=== PATIENT | female | born 1955 | race Caucasian/White ===

== ENCOUNTER 2020-05-05 15:49 | Outpatient (CLI) | payer BC, SELFPAY ==
--- NOTE | ~2020-05-05 | MM_ITS ---
EXAMINATION: MM screening miguel ángel BI w mary HISTORY: Screening mammogram TECHNIQUE: Craniocaudal and mediolateral oblique 3-D tomosynthesis images were obtained and synthetic 2-D images were generated. CAD analysis was submitted and interpreted. COMPARISON: 03/31/2019 bilateral digital screening mammogram 11/07/2009 bilateral diagnostic digital mammogram BREAST PARENCHYMAL COMPOSITION: The breasts are extremely dense, which lowers the sensitivity of mamm ography. FINDINGS: There is no evidence of suspicious mass, calcification, or architectural distortion to sugg est malignancy in either breast. There has been no suspicious interval change. IMPRESSION: 1. No mammographic evidence of malignancy. 2. Recommend routine screening mammography in one year. BI-RADS Category 1: Negative Reviewed, dictated and finalized at location A. E GLASS GRINDER
== END 2020-05-05 15:50 | disposition home or self-care (01) ==
LOC: ANHIMG 15:52
PROVIDERS: PCP Internal Medicine; Visit Provider Nurse Practitioner
DX: Z12.31 Encounter for screening mammogram for malignant neoplasm of breast (principal)
CPT/HCPCS: 77063; 77067

== ENCOUNTER 2021-08-29 15:10 | Outpatient (CLI) | payer MEDICARE, SELFPAY ==
--- NOTE | ~2021-08-29 | MM_ITS ---
EXAMINATION: MM screening [facility] BI w mary HISTORY: Screening mammogram TECHNIQUE: Craniocaudal and mediolateral oblique 3-D tomosynthesis images were obtained and synthetic 2-D images were generated. CAD analysis was submitted and interpreted. COMPARISON: 05/05/2020, 03/31/2019 BREAST PARENCHYMAL COMPOSITION: The breasts are extremely dense, which lowers the sensitivity of mamm ography. FINDINGS: There is no suspicious mass, calcification, or architectural distortion to suggest malignan cy in either breast. There has been no suspicious interval change. IMPRESSION: 1. No mammographic evidence of malignancy. 2. Recommend routine screening mammography in one year. BI-RADS Category 1: Negative Reviewed, dictated and finalized at location A.
--- NOTE | ~2021-08-29 | DEXA_ITS ---
Bone Density Report Name: VERO MARSHALL Age: 65 Sex: Female Ethnicity: White Date of : 1955 Indication: osteopenia; height loss; inflammatory bowel disease; postmenopausal Referring Provider: SHREE, SHARMAINE Study: Bone densitometry was performed. Exam Date: August 29, 2021 Accession number: [id number] Bone Density: Region BMD T-score Z-score Classification AP Spine (L1-L4) 0.844 -1.8 0.0 Osteopenia Femoral Neck (Left) 0.657 -1.7 -0.2 Osteopenia Total Hip (Left) 0.876 -0.5 0.7 Normal Total Hip Bilateral Avg 0.867 -0.6 0.7 Normal Femoral Neck (Right) 0.661 -1.7 -0.1 Osteopenia Total Hip (Right) 0.856 -0.7 0.6 Normal World Health Organization criteria for BMD impression classify patients as: Normal (T-score at or above -1.0), Osteopenia (T-score between -1.0 and -2.5), or Osteoporosis (T-score at or below -2.5). 10-year Fracture Risk(1): Major Osteoporotic Fracture 9.2% Hip Fracture 1.2% Reported Risk Factors: [place] (), Neck BMD=0.657, BMI=22.4 (1) FRAX(R) Version 3.08. Fracture probability calculated for an untreated patient. Fracture probability may be lower if the patient has received treatment. Previous Exams: Region Exam Age BMD T-score BMD Change BMD Change Date g/cm2 vs Baseline vs Previous AP Spine(L1-L4) 08/29/2021 65 0.844 -1.8 0.021(2.6%) 0.021(2.6%) 03/31/2019 63 0.822 -2.0 Total Hip(Left) 08/29/2021 65 0.876 -0.5 0.010(1.2%) 0.010(1.2%) 03/31/2019 63 0.866 -0.6 Total Hip(Right) 08/29/2021 65 0.856 -0.7 0.015(1.8%) 0.015(1.8%) 03/31/2019 63 0.841 -0.8 *Denotes significance at 95% confidence level, LSC for AP Spine = 0.022 g/cm2, LSC for Total Hip = 0.027 g/cm2 Clinical Information Provided by Patient: Has used the following medications: Vitamin D, Calcium Has the following medical conditions: Inflammatory bowel diseases Patient maximum height was 60 Menopause Age: 50 Onset of menses at age 13 Number of children 2 Impression: The patient has low bone mass, based on the Total Spine T-score. The patient has an estimated ten-year risk of hip fracture of 1.2% and an estimated ten-year risk of major fracture of 9.2%, based on the WHO FRAX algorithm. No significant bone loss was observed. Discussion: BONE DENSITY IS LOW AT ONE OR MORE SKELETAL SITES. This patient's lowest T-score is low at one or more skeletal sites. It meets the World Health Organization's (WHO) criteri
== END 2021-08-29 15:11 | disposition home or self-care (01) ==
PROVIDERS: PCP Internal Medicine; Visit Provider Nurse Practitioner
DX: Z12.31 Encounter for screening mammogram for malignant neoplasm of breast (principal); M85.88 Other specified disorders of bone density and structure, other site; M85.852 Other specified disorders of bone density and structure, left thigh; M85.851 Other specified disorders of bone density and structure, right thigh
CPT/HCPCS: 77063; 77067; 77080

== ENCOUNTER → 2022-11-05 16:46 | Outpatient (CLI) | payer MEDICARE, SELFPAY ==
--- NOTE | ~2022-11-05 | MM_ITS ---
EXAMINATION: MM screening miguel ángel BI w mary HISTORY: Screening TECHNIQUE: Craniocaudal and mediolateral oblique 3-D tomosynthesis images were obtained and synthetic 2-D images were generated. CAD analysis was submitted and interpreted. COMPARISON: Comparison to multiple prior studies sequentially, with oldest reviewed study dated 03/04. BREAST PARENCHYMAL COMPOSITION: The breasts are heterogeneously dense, which may obscure small masses FINDINGS: There has been interval change in both breasts symmetrically, consistent with interval oj st reduction surgery. There are focal asymmetries in the outer aspect of both breasts which may relat e to prior surgery, although additional evaluation recommended. IMPRESSION: 1. Bilateral breast asymmetries. 2. Additional mammographic views and possible breast ultrasound are recommended. BI-RADS Category 0: Incomplete: Needs additional imaging evaluation. Reviewed, dictated and finalized at location A. IMPRESSION: 1. Bilateral breast asymmetries. 2. Additional mammographic views and possible breast ultrasound are recommended . BI-RADS Category 0: Incomplete: Needs additional imaging evaluation.
== END ==
PROVIDERS: PCP Nurse Practitioner; Visit Provider Nurse Practitioner
DX: Z12.31 Encounter for screening mammogram for malignant neoplasm of breast (principal); R92.8 Other abnormal and inconclusive findings on diagnostic imaging of breast
CPT/HCPCS: 77063; 77067

== ENCOUNTER → 2022-12-21 14:21 | Outpatient (CLI) | payer MEDICARE, SELFPAY ==
--- NOTE | ~2022-12-21 | MMUS_ITS ---
EXAMINATION: MM diagnostic miguel ángel BI w mary, US breast BI complete HISTORY: Follow-up breast asymmetries. TECHNIQUE: Additional 3-D tomosynthesis images of the breasts were performed and synthetic 2-D images were generated. CAD analysis was submitted and interpreted. High resolution bilateral complete breas t ultrasound was performed. COMPARISON: Comparison to multiple prior studies sequentially, with oldest reviewed study dated 03/04. BREAST PARENCHYMAL COMPOSITION: The breasts are extremely dense, which lowers the sensitivity of mamm ography FINDINGS: MAMMOGRAPHIC FINDINGS: There are asymmetries in the mid outer aspect of the right breast and lateral half of the left breast . There are masses in the upper outer quadrant of the right breast which are partially obscured by de nse fibroglandular tissue. There are nodular asymmetries in the periareolar aspect of the left breast . ULTRASOUND: Complete bilateral US of all 4 quadrants of the breasts and retroareolar region was reviewed. Right breast: At 10:00, 6 cm from the nipple there is a new oval hypoechoic mass with heterogeneous i nternal echotexture measuring 6 x 4 x 6 mm with mixed posterior attenuation and no internal vasculari ty. Parallel orientation. At 12:00 near the areola of the left breast there is an oval superficial hy poechoic circumscribed mass with parallel orientation, posterior acoustic enhancement measuring 9 mm maximum dimension. At 3:00, 4 cm from the nipple there is an oval 3 mm hypoechoic mass, parallel, no posterior features and no internal vascularity, likely benign. IMPRESSION: 1. Solid bilateral breast masses. 2. Bilateral ultrasound-guided biopsies recommended. BI-RADS category 4, suspicious findings. Reviewed, dictated and finalized at location A. IMPRESSION: 1. Solid bilateral breast masses. 2. Bilateral ultrasound-guided biopsies recommended. BI-RADS category 4, suspicious findings.
== END ==
PROVIDERS: PCP Obstetrics & Gynecology Gynecology; Visit Provider Obstetrics & Gynecology Gynecology
DX: R92.8 Other abnormal and inconclusive findings on diagnostic imaging of breast (principal)
CPT/HCPCS: 76641; 77062; 77066; G0279

== ENCOUNTER 2023-01-22 09:09 | Outpatient (CLI) | payer MEDICARE, SELFPAY ==
--- NOTE | ~2023-01-22 | MMUS_ITS ---
EXAMINATION: US GUIDED NEEDLE BIOPSY DATE: 01/22/2023 11:23 CDT INDICATION: Hypoechoic right 10:00 breast mass 6 cm from nipple reported on 12/21/2022 ultrasound exam ination. (The doctor's office was contacted concerning the left breast 12:00 subareolar lesion; the office per sonnel noted that the lesion is to be biopsied in the office.) TECHNIQUE AND FINDINGS: The risks and potential benefits of the procedure were discussed with the patient, and written inform ed consent was obtained. Timeout procedure was performed. After sterile preparation of the right jo st, 1% lidocaine was utilized for local anesthesia. A 12-gauge spring-loaded biopsy gun needle was advanced to the edge of the region of interest from a lateral medial approach utilizing sonographic guidance. A total of three tissue core samples were ob tained through the lesion. An Inrad tissue marker clip was then placed at the biopsy site. Hemostasi s was achieved. A sterile bandage was applied. The patient tolerated procedure well and there was no evidence of immediate complication. The patien t was given verbal instructions prior to departing from the department. A two view mammogram was perf ormed to document tissue marker clip placement. The tissue samples were submitted to surgical patholo gy for histologic analysis. IMPRESSION: 1. Successful ultrasound guided biopsy of right 10:00 breast mass with biopsy marker placement. Plea se refer to pathology report for histologic analysis. Reviewed, dictated and finalized at Location A. Reviewed, dictated and finalized at location A. IMPRESSION: 1. Successful ultrasound guided biopsy of right 10:00 breast mass with biopsy marker placement. Please refer to pathology report for histologic analysis.
== END 2023-01-22 09:10 | disposition home or self-care (01) ==
PROVIDERS: PCP Internal Medicine; Visit Provider Physician Assistant Surgical
DX: R92.8 Other abnormal and inconclusive findings on diagnostic imaging of breast (principal)
CPT/HCPCS: 19083; 88305; A4648

== ENCOUNTER 2024-05-05 10:20 | Outpatient (CLI) | payer MEDICARE, SELFPAY ==
--- NOTE | ~2024-05-05 | US_ITS ---
EXAMINATION: US soft tissue UE RT DATE: 05/05/2024 10:51 INDICATION: Palpable mass at the trapezial region of the right shoulder TECHNIQUE: Multiple grayscale and Doppler ultrasound images of the region of concern at the right karmen ulder were obtained. COMPARISON: None FINDINGS/IMPRESSION: Normal appearance to the subcutaneous fat, underlying musculature and a few deeper ribs and intercost al muscles at the region of concern. No abnormal masses or fluid collections identified. Reviewed, dictated and finalized at location A. CIATE PROFESSOR OF PHYSICS
--- NOTE | ~2024-05-05 | XR_ITS ---
Left Shoulder Technique: AP and scapular Y views were obtained. Clinical History: Pain Findings: No fracture or dislocation is seen. Osseous alignment is anatomic. The glenohumeral and acr omioclavicular joint spaces are preserved. Soft tissues are unremarkable. Impression: Unremarkable left shoulder radiographs. Reviewed, dictated and finalized at [facility]. [employer] Impression: Unremarkable left shoulder radiographs.
== END 2024-05-05 10:21 | disposition home or self-care (01) ==
LOC: MICIMG 10:23
PROVIDERS: PCP Internal Medicine; Visit Provider Internal Medicine
DX: R22.31 Localized swelling, mass and lump, right upper limb (principal); M25.512 Pain in left shoulder
CPT/HCPCS: 73030; 76882

== ENCOUNTER 2024-05-26 09:53 | Outpatient (CLI) | payer MEDICARE, SELFPAY ==
--- NOTE | ~2024-05-26 | MR_ITS ---
EXAMINATION: MR shoulder LT wo con DATE: 05/26/2024 10:54 INDICATION: Anterior left shoulder pain. TECHNIQUE: Magnetic resonance imaging (MRI) of the left shoulder was performed without intravenous co ntrast. Sequences included axial PD-weighted FS FSE, coronal oblique PD-weighted FS FSE and T2-weight ed FS FSE, and sagittal oblique T2-weighted FS FSE and T1-weighted FSE. COMPARISON: Left shoulder radiographs 05/05/2024 FINDINGS: Coracoacromial arch: The acromion undersurface is flat in morphology (type I). There is severe acromioclavicular joint ost eoarthritis. There is mild subacromial/subdeltoid bursitis. Rotator cuff: There is severe supraspinatus tendinopathy and mild infraspinatus tendinopathy. There is a bursal-felicity ed partial-thickness tear of supraspinatus tendon measuring 8 mm anterior to posterior by 4.0 cm prox imal to distal by 40% tendon thickness. Teres minor tendon is normal. Subscapularis tendon is normal. There is mild edema in supraspinatus muscle belly. Biceps tendon and glenoid labrum: Biceps tendon is in bicipital groove. There is a partial tear of intra-articular biceps tendon. There is degenerative tearing of the superior glenoid labrum. Fluid: There is a small glenohumeral joint effusion. Bones/cartilage: There is shallow partial-thickness cartilage loss of humeral head. There is full-thickness cartilage loss of anterior glenoid. IMPRESSION: 1. Bursal-sided, partial-thickness tear of supraspinatus tendon. Edema in supraspinatus muscle belly, consistent with mild strain versus subacute denervation. 2. Severe glenoid chondrosis and mild humeral head chondrosis. 3. Severe acromioclavicular osteoarthritis. 4. Partial tear of intra-articular biceps tendon. 5. Small glenohumeral joint effusion. 6. Mild subacromial/subdeltoid bursitis. Reviewed, dictated and finalized at location A. IT REPRESENTATIVE IMPRESSION: 1. Bursal-sided, partial-thickness tear of supraspinatus tendon. Edema in supra spinatus muscle belly, consistent with mild strain versus subacute denervation. 2. Severe glenoid chondrosis and mild humeral head chondrosis. 3. Severe acromioclavicular osteoarthritis. 4. Partial tear of intra-articular biceps tendon. 5. Small glenohumeral joint effusion. 6. Mild subacromial/subdeltoid bursitis.
== END 2024-05-26 09:54 | disposition home or self-care (01) ==
LOC: MICIMG 09:54
PROVIDERS: PCP Internal Medicine; Visit Provider Internal Medicine
DX: M25.512 Pain in left shoulder (principal)
CPT/HCPCS: 73221

== ENCOUNTER 2024-12-22 08:58 | Outpatient (CLI) | payer MEDICARE, SELFPAY ==
--- NOTE | ~2024-12-22 | MM_ITS ---
EXAMINATION: screening [facility] BI w mary INDICATION: Asymptomatic, referred for screening mammogram COMPARISON: 12/21/2022 through 03/31/2019 TECHNIQUE: Digital Breast Tomosynthesis CC, MLO views of Both breasts were obtained with computer-ai ded detection to assist in interpretation of the study. FINDINGS: The breasts are heterogeneously dense, which may obscure small masses. There is a new mass in the superior central subareolar left breast. Elsewhere, there are no mammographic features of malignancy. IMPRESSION: 1. Left breast Mass. 2. No evidence of malignancy in the Right breast. RECOMMENDATION: Left breast ultrasound BI-RADS Category 0: Incomplete: Needs additional imaging evaluation. Reviewed, dictated and finalized at location B.
--- NOTE | ~2024-12-22 | DEXA_ITS ---
Bone Density Report Name: VERO MARSHALL Age: 69 Sex: Female Ethnicity: White Date of : 1955 Indication: postmenopausal; screening for osteoporosis; inflammatory bowel disease; Referring Provider: HUSSAIN, TANYA Study: Bone densitometry was performed. Exam Date: December 22, 2024 Accession number: [id number] Bone Density: Region BMD T-score Z-score Classification AP Spine(L1-L4) 0.828 -2.0 0.1 Osteopenia Femoral Neck (Left) 0.665 -1.7 0.1 Osteopenia Total Hip (Left) 0.845 -0.8 0.7 Normal Femoral Neck (Right) 0.669 -1.6 0.1 Osteopenia Total Hip (Right) 0.857 -0.7 0.8 Normal Total Hip Mean 0.851 -0.8 0.8 Normal World Health Organization criteria for BMD impression classify patients as: Normal (T-score at or above -1.0), Osteopenia (T-score between -1.0 and -2.5), or Osteoporosis (T-score at or below -2.5). 10-year Fracture Risk(1): Major Osteoporotic Fracture 9.2% Hip Fracture 1.4% Reported Risk Factors: [place] (), Neck BMD=0.665, BMI=21.3 (1) FRAX(R) Version 3.08. Fracture probability calculated for an untreated patient. Fracture probability may be lower if the patient has received treatment. Clinical Information Provided by Patient: Has used the following medications: Vitamin D Has the following medical conditions: Inflammatory bowel diseases Patient maximum height was 60 Menopause Age: 50 Drinks caffeinated beverages Onset of menses at age 13 Number of children 2 Impression: The patient has low bone mass, based on the Total Spine T-score. The patient has an estimated ten-year risk of hip fracture of 1.4% and an estimated ten-year risk of major fracture of 9.2%, based on the WHO FRAX algorithm. Discussion: BONE DENSITY IS LOW AT ONE OR MORE SKELETAL SITES. This patient's lowest T-score is low at one or more skeletal sites. It meets the World Health Organization's (WHO) criteria for ?low bone mass? (T-score between -1.0 and -2.5). The patient's 10-year risk of fracture as calculated by FRAX is less than the threshold where pharmacological therapy is recommended by the National Osteoporosis Foundation (NOF). However, all treatment decisions require clinical judgment and consideration of individual patient factors, including patient preferences, comorbidities, previous drug use, risk factors not captured in the FRAX model (e.g., frailty, falls, vitamin D deficiency, increased bone turnover, interval significant decline in bone density) and possible under or overestimation of fracture risk by FRAX. The patient should follow a healthful lifestyle (good nutrition with adequate calcium and vitamin D, and appropriate weight-bearing exercise). Follow-Up: Consider repeating this study in 2 to 3 years to reassess this patient's status, or sooner if there is some new clinical indication. Reported by: ERNESTO on 12/22/2024 9:57:00 AM. Reviewed, dictated and finalized at location A.
--- OUTSIDE RECORDS SUMMARY | 2024-12-22 09:06 | XMS_ITS | Patient Health Record ---
Author Organization [facility] alicia Address [address] [place] [address] Care Team Providers Care Distillery Miller Helper Name Role Phone Kathyyesy María Primary Care Provider Apryl Chase Unavailable [phone] Allergies No Known Allergies Results Component Value Reference Range Notes X ray : Spines, cervical 2 v iews Reviewed date:08/31/2024 12:01:45 PM Interpretation: Performing Lab: Notes/Report: Reason For Referral No Information Medications Medication SIG (Take, Route, Frequency, Duration) Notes Start Date End Date Status Vitamin D Active Magnesium Active Collagen Active Vitamin C Active Problems Problem Type SNOMED Code ICD Code Onset Dates Problem Status W/U Status Risk Notes Problem Osteoarthritis (603776110) Osteoarthritis, unspecified osteoarthritis type, unspecified site (M19.90) Active confirmed Problem Neck pain (02713891) Neck pain (M54.2) Active confirmed Vital Signs Heart Rate 81 /min 08/10/2024 Temperature 98.1 degrees Fahrenheit 08/10/2024 Oximetry 95 % 08/10/2024 Height-cm 149.86 cm 08/10/2024 Blood pressure diastolic 70 mm Hg 08/10/2024 Weight-kg 49.07 kg 08/10/2024 Height 59 in 08/10/2024 Blood pressure systolic 110 mm Hg 08/10/2024 Weight 108.2 lbs 08/10/2024 BMI 21.85 kg/m2 08/10/2024 Encounters Encounter Location Date Provider Diagnosis [facility] [address] [place] [address] 02/10/2024 Apryl Baltazar CHRISTY positive R76.8 ; Osteoarthritis, unspecified osteoarthritis type, unspecified site M19.90 and Lumbar back pain M54.50 [facility] [address] [place] [address] 08/10/2024 Apryl Baltazar CHRISTY positive R76.8 ; Neck pain M54.2 ; Osteoarthritis, unspecified osteoarthritis type, unspecified site M19.90 and Lumbar back pain M54.50 [facility] [address] [place] [address] 02/13/2024 Apryl Baltazar Assessments Encounter Date Diagnosis (ICD Code) Assessment Notes Treatment Notes Treatment Clinical Notes Section Notes 02/10/2024 Osteoarthritis, unspecified osteoarthritis type, unspecified site (ICD-10 - M19.90) low back hurting, will order Xrays, start back exercise ,instrucitons given, return in 6 months 02/10/2024 CHRISTY positive (ICD-10 - R76.8) low back hurting, will order Xrays, start back exercise ,instrucitons given, return in 6 months 08/10/2024 CHRISTY positive (ICD-10 - R76.8) mentioned PT and muscle relaxer, she declined, order cervical spine Xrays 08/10/2024 Neck pain (ICD-10 - M54.2) mentioned PT and muscle relaxer, she declined, order cervical spine Xrays 02/10/2024 Lumbar back pain (ICD-10 - M54.50) low back hurting, will order Xrays, start back exercise ,instrucitons given, return in 6 months 08/10/2024 Osteoarthritis, unspecified osteoarthritis type, unspecified site (ICD-10 - M19.90) mentioned PT and muscle relaxer, she declined, order cervical spine Xrays 08/10/2024 Lumbar back pain (ICD-10 - M54.50) mentioned PT and muscle relaxer, she declined, order cervical spine Xrays Plan Of Treatment Pending Test Test Name Order Date X ray : Spines, lumbar complete 02/10/20 24 Next Appt Details Provider Name:Apryl Baltazar, 02/22 02:45:00 PM, [address], [place], [address], Insurance Providers Payer Name Payer Address Payer Phone Subscriber Number Group Number Insured Name Patient Relationship to Insured Coverage Start Date Coverage End Date [employer] Medicare Advantage A[employer] [address] [address] [place], [place] [id number] Leidy Baker Self - patient is the insured Medical (General) History Medical History History ICD Code BPPV (benign paroxysmal positional verti go); C. difficile colitis; Collagenous colitis; Hearing loss; IBS (irritable bowel syndrome); Microscopic colitis; Osteopenia; Vitamin D deficiency; Surgical History Surgery Date(Month/Year) LEEP conization of cervix; 2023-01-03 Breast reduction; 2023-01-03 Lasik; 2023-01-03 Toe Surgery; 2023-01-03 Cyst removal; 2023-01-03
--- OUTSIDE RECORDS SUMMARY | 2024-12-22 09:06 | XMS_ITS | Clinical Summary ---
Author Organization [facility] Address [address] [place] [address] Care Team Providers Care Gem Technician Name Role Phone Unavailable Primary Care Provider Unavailabl e Social History Tobacco Use Types Packs/Day Years Used Date Smoking Tobacco: Never Assessed Comments Unknown Sex and Gender Information Value Date Recorded Sex Assigned at Not on file Legal Sex Female 7:52 PM CDT Gender Identity Not on file Sexual Orientation Not on file Plan of Treatment Health Maintenance Due Date Last Done Comments Colorectal Cancer Screening Colonoscopy (10 Years) 1955 Hepatitis C 10/15/1973 DTaP, Tdap and Td Vaccines ( 1 - Tdap) 10/15/1974 Mammogram Screening 1995 Pneumococcal Vaccine: 50+ Ye ars (1 of 1 - PCV) 10/15/2005 Zoster Vaccines (1 of 2) 10/15/2005 Dexa Scan (General) 10/15/2020 COVID-19 Vaccine ( - 2023-2 5 season) 2024 RSV Immunization or 60+ Years (1 - 1-dose 75+ series) 10/15/2030 Meningococcal B Vaccine Aged Out No l onger eligible based on patient's age to complete this topic Meningococcal Vaccine Aged Out No rafal warren eligible based on patient's age to complete this topic RSV Immunizations Under 20 Months Aged Out No longer eligible based on patient's age to complete this topic
--- OUTSIDE RECORDS SUMMARY | 2024-12-22 09:06 | XMS_ITS | Referral Summary ---
Author Organization [facility] [address] Address [address] [place] [address] Care Team Providers Care Commercial Front Load Operator Name Role Phone Brit Castellanos MD Primary Care Provider [phone]- [phone] Allergies No known active allergies Medications cholestyramine-aspa rtame 4 gram powder Take by mouth nightly Active ondansetron ODT (ZOFRAN-ODT) 8 mg disintegrating tabletIndications:P revention of Post-Operative Nausea and Vomiting Take 1 tablet (8 mg total) by mouth every 8 (eight) hours as needed for nausea or vomiting 12 tablet 1 2 Active HYDROcodone-acetami nophen (NORCO) 5-325 mg per tabletIndications:P ain Take 1 tablet by mouth every 6 (six) hours as needed for pain 20 tablet 2 Active Active Problems Problem Noted Date Diagnosed Date Macromastia 07/09/2021 Syncope and collapse 12/09/2018 Social History Tobacco Use Types Packs/Day Years Used Date Smoking Tobacco: Former Smokeless Tobacco: Never Comments:quite 1991 Alcohol Use Standard Drinks/Week Comments Never 0 (1 standard drink = 0.6 oz pur e alcohol) AUDIT-C Answer Date Recorded Q1: How often do you have a drink containing alc ohol? 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 Gender Identity Not on file Sexual Orientation Not on file Last Filed Vital Signs Vital Sign Reading Time Taken Comments Blood Pressure 109/70 08/17/2024 1:18 PM CDT Pulse 64 08/17/2024 1:18 PM CDT Temperature 36.8 C (98.3 F) 09/12/2021 3:39 PM CDT Respiratory Rate 16 09/12/2021 4:00 PM CDT Oxygen Saturation 99% 09/12/2021 4:00 PM CDT Inhaled Oxygen Concentration - - Weight 49.9 kg (110 lb) 08/17/2024 1:18 PM CDT Height 152.4 cm (5') 08/17/2024 1:18 PM CDT Body Mass Index 21.48 08/17/2024 1:18 PM CDT Plan of Treatment Not on file Insurance [place] PR[place] [facility] Address: [address] [address] [place] [address] UHC MEDICARE ADVANTAGE [facility] Address: [facility] [address] [place] [address] [facility] MEDICARE ADVANTAGE [facility] Address: [address] [address] [place] [address] Care Teams Commercial Front Load Operator Relationship Specialty Start Date End Date Brit Castellanos MD PCP - General Internal Medicine 07/24/18
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
== END 2024-12-22 08:59 | disposition home or self-care (01) ==
LOC: ANHIMG 09:02
PROVIDERS: PCP Internal Medicine; Visit Provider Nurse Practitioner Women's Health
DX: Z12.31 Encounter for screening mammogram for malignant neoplasm of breast (principal); Z78.0 Asymptomatic menopausal state; M85.88 Other specified disorders of bone density and structure, other site; M85.851 Other specified disorders of bone density and structure, right thigh; M85.852 Other specified disorders of bone density and structure, left thigh; N63.20 Unspecified lump in the left breast, unspecified quadrant
CPT/HCPCS: 77063; 77067; 77080

== ENCOUNTER 2025-01-21 10:23 | Outpatient (CLI) | payer MEDICARE, SELFPAY ==
--- NOTE | ~2025-01-21 | US_ITS ---
EXAMINATION TYPE: US breast LT limited COMPARISON: Ultrasound dated 12/21/2022, mammography dated 12/22/2024 REASON FOR STUDY: ABNORMAL CHAY TECHNIQUE: Targeted sonographic evaluation of the left breast was performed. INTERPRETATION: At the 12:00 position near the nipple, there is a 1.5 x 1.4 x 1.0 cm circumscribed wider than tall hypoechoic solid mass. No posterior shadowing. IMPRESSION: 1.5 cm solid mass in the left breast 12:00 position near the nipple, increased in size since 2022, at which time it measured 0.9 cm in maximum diameter. Given slow increase in size and imaging characteristics, this lesion is probably benign. Six-month follow-up ultrasound recommended to reassess. BI-RADS CATEGORY: BI-RADS 3: Six-month follow-up recommended Reviewed, dictated and finalized at [facility]. IMPRESSION: 1.5 cm solid mass in the left breast 12:00 position near the nipple, increased in size since 2022, at which time it measured 0.9 cm in maximum diameter. Given slow increase in size and imaging characteristics, this lesion is probably doug ign. Six-month follow-up ultrasound recommended to reassess. BI-RADS CATEGORY: BI-RADS 3: Six-month follow-up recommended
--- OUTSIDE RECORDS SUMMARY | 2025-01-21 11:04 | XMS_ITS | Patient Health Record ---
Author Organization [facility] alicia Address [address] [place] [address] Care Team Providers Care Maintenance Manager Name Role Phone Kathyyesy María Primary Care Provider Apryl Chase Unavailable [phone] Allergies No Known Allergies Results Component Value [...] Status W/U Status Risk Notes Problem Osteoarthritis (718268432) Osteoarthritis, unspecified osteoarthritis type, unspecified site (M19.90) Active confirmed Problem Neck pain (59796999) Neck pain (M54.2) Active confirmed Vital Signs Heart Rate 81 /min 08/10/2024 Temperature 98.1 degrees Fahrenheit 08/10/2024 Oximetry 95 % 08/10/2024 Height-cm 149.86 cm 08/10/2024 Blood pressure diastolic 70 mm Hg 08/10/2024 Weight-kg 49.07 kg 08/10/2024 Height 59 in 08/10/2024 Blood pressure systolic 110 mm Hg 08/10/2024 Weight 108.2 lbs 08/10/2024 BMI 21.85 kg/m2 08/10/2024 Encounters Encounter Location Date Provider Diagnosis [facility] [address] [place] [address] 02/10/2024 Apryl Baltazar CHRISTY positive R76.8 ; Osteoarthritis, unspecified osteoarthritis type, unspecified site M19.90 and Lumbar back pain M54.50 [facility] [address] [place] [address] 08/10/2024 Apryl Baltazar CHRISTY positive R76.8 ; Neck pain M54.2 ; Osteoarthritis, unspecified osteoarthritis type, unspecified site M19.90 and Lumbar back pain M54.50 [facility] [address] [place] [address] 02/13/2024 Apryl Baltazar Assessments Encounter Date Diagnosis [...] Name:Apryl Baltazar, 02/22 02:45:00 PM, [address], [place], [address], Insurance Providers Payer Name Payer Address Payer Phone Subscriber Number Group Number Insured Name Patient Relationship to Insured Coverage Start Date Coverage End Date [facility] Medicare Advantage [employer] [address] [address] [place], [place] [id number] [phone] [id number] Leidy Baker Self - patient is the [...]
--- OUTSIDE RECORDS SUMMARY | 2025-01-21 11:04 | XMS_ITS | Clinical Summary ---
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 Gender Identity Not on file Sexual Orientation [...] 2023-2 5 season) 2024 05/07/2021, 09/20/2020, 08/30/2020 Influenza Vaccine (#1) 2025 4, 03/02/2022, 03/02/2021, Additional history exists DTaP/Tdap/Td Vaccine (3 - Tdap) 07/22/2028 9, 01/03/2009 Hepatitis B Screening Completed 04/04/2010 , 12/26/2009, 10/24/2009 Zoster Vaccine Completed 05/26/2021, 03/01/2021 Insurance [place] CHO[place] [facility] HMO REF [facility] MEDICARE ADVANTAGE [facility] MEDICARE ADVANTAGE Care Teams Director Women Relationship Specialty Start Date End Date Brit Castellanos MD PCP - General Internal Medicine 07/24/18
--- OUTSIDE RECORDS SUMMARY | 2025-01-21 11:04 | XMS_ITS | Clinical Summary ---
Author Organization [facility] Address [address] [place] [address] Care Team Providers Care Frame Stripper Name Role Phone Unavailable Primary Care Provider [...]
== END 2025-01-21 10:24 | disposition home or self-care (01) ==
PROVIDERS: PCP Physician Assistant; Visit Provider Obstetrics & Gynecology Gynecology
DX: R92.8 Other abnormal and inconclusive findings on diagnostic imaging of breast (principal)
CPT/HCPCS: 76642

== ENCOUNTER 2025-03-16 10:10 | Outpatient (CLI) | payer MEDICARE, SELFPAY ==
--- NOTE | ~2025-03-16 | XR_ITS ---
EXAMINATION: XR wrist RT 2V, 03/16/2025 10:16 CDT HISTORY: Pain in R wrist COMPARISON: No comparisons available. Findings: No acute fracture or malalignment. No significant degenerative changes. Soft tissues unremarkable. Impression: No acute fracture or malalignment. Reviewed, dictated and finalized at location P. Impression: No acute fracture or malalignment.
== END 2025-03-16 10:11 | disposition home or self-care (01) ==
LOC: MICIMG 10:13
PROVIDERS: PCP Physician Assistant; Visit Provider Nurse Practitioner Family
DX: M25.531 Pain in right wrist (principal)
CPT/HCPCS: 73100